=== PATIENT | male | born 1985 | race Caucasian/White ===

== ENCOUNTER 2018-11-18 08:25 | Emergency (ER) | payer OTHER ==
[~2018-11-18] VITALS: Wt 80.6 kg
[2018-11-18 08:40] VITALS: BP 139/71; PULSE 103; RESP 18
[2018-11-18] MEDS ORDERED: IBUP-1542 PO (09:35)
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
== END 2018-11-18 09:49 | disposition home or self-care (01) ==
LOC: FTE 08:25
DX: M25.531 Pain in right wrist (principal); R40.2412 Glasgow coma scale score 13-15, at arrival to emergency department; F17.210 Nicotine dependence, cigarettes, uncomplicated
CPT/HCPCS: 29125; 73110; Z7502